=== PATIENT | male | born 2000 | race Caucasian/White ===

== ENCOUNTER 2022-06-07 13:01 | Emergency (ER) | payer OTHER ==
[~2022-06-07] VITALS: Ht 177.8 cm; Wt 70.2 kg
[2022-06-07] MEDS ORDERED: IBUPROFEN 800 MG TAB PO ONE (14:10)
[2022-06-07 15:33] VITALS: BP 140/76
== END 2022-06-07 15:34 | disposition home or self-care (01) ==
LOC: M ED 13:01
DX: S13.4XXA Sprain of ligaments of cervical spine, initial encounter (principal); F10.10 Alcohol abuse, uncomplicated; F17.200 Nicotine dependence, unspecified, uncomplicated